=== PATIENT | male | born 1950 | race Caucasian/White ===

== ENCOUNTER 2020-10-29 03:07 | Emergency (ER) | payer MEDICARE, OTHER ==
[2020-10-29 03:50] LABS: RED BLOOD COUNT 4.13 M/UL (4.20-5.50); WHITE BLOOD COUNT 6.4 K/UL (4.5-11.0)
[2020-10-29 04:14] LABS: BUN/CREATININE RATIO 17 (0-10)
== END 2020-10-29 09:10 | disposition home or self-care (01) ==
LOC: ER1 03:07
PROVIDERS: Family Medicine
DX: R07.9 Chest pain, unspecified (principal); I25.2 Old myocardial infarction
CPT/HCPCS: 71045; 80053; 82550; 82553; 83874; 84484; 85025; 93005; 99285